=== PATIENT | male | born 1955 | race Caucasian/White ===

== ENCOUNTER → 2022-07-22 11:21 | Outpatient (BNVA) | payer MEDICARE, SELFPAY | PROVIDERS: PCP Internal Medicine; Referring Provider Internal Medicine; Visit Provider Surgery | DX: K21.9 Gastro-esophageal reflux disease without esophagitis (principal); R84.8 Other abnormal findings in specimens from respiratory organs and thorax; C85.90 Non-Hodgkin lymphoma, unspecified, unspecified site; Z87.891 Personal history of nicotine dependence | CPT/HCPCS: 99203 ==

== ENCOUNTER 2022-07-29 07:08 | Day surgery (SDC) | payer MEDICARE, SELFPAY ==
--- NOTE | 2022-07-28 19:38 | PDOC.DSDIS_ITS ---
Date of service: 07/29/22 Time of Service: 09:33 Discharge Plan Disposition Patient Disposition: HOME Condition: Good Discharge Details Reason For Visit: EGD Attending Provider: Wayne Hernandez Primary Care Provider: Pattie Rousseau Home Meds and New Rx's Prescriptions: Continued gabapentin 300 mg capsule 300 mg PO HS aspirin [Adult Aspirin Regimen] 81 mg tablet,delayed release (DR/EC) 162 mg PO DAILY atorvastatin 40 mg tablet 40 mg PO DAILY glipizide 2.5 mg tablet extended release 24hr 2.5 mg PO BID paroxetine HCl [Paxil CR] 25 mg tablet extended release 24 hr 25 mg PO DAILY Farxiga 5 mg tablet 5 mg PO DAILY omeprazole 40 mg capsule,delayed release(DR/EC) 40 mg PO HS loratadine [Allergy Relief (loratadine)] 10 mg tablet 10 mg PO DAILY montelukast [Singulair] 10 mg tablet 10 mg PO DAILY metformin 1,000 mg tablet 1,000 mg PO DAILY metformin 500 mg tablet 1,500 mg PO HS meloxicam 7.5 mg tablet 7.5 mg PO DAILY pioglitazone 30 mg tablet 30 mg PO DAILY Discharge Instructions Additional Instructions: 1. If tolerated, consume a soft, low fiber diet for 1-2 days. [address] not drive, drink alcohol, operate machinery, make critical decisions, or do activities that require coordination or balance for 24 hours. 3. You may experience a sore throat for 24 to 48 hours. You may use throat lozenges or gargle with warm salt water to relieve the discomfort. 4. Because air was put into your stomach during the procedure, you may experienc e some belching.57. Go directly to the emergency room if you notice any of the following: Develop chills (warm to touch), or if you have a thermometer and your temperature is above 101 Difficulty breathing or difficultly swallowing Persistent vomiting Severe abdominal pain, other than gas cramps Severe chest pain Black, tarry stools Any bleeding ? exceeding one tablespoon 6. Call your physician if the site where your intravenous was started becomes red, swollen, painful, and warm to touch. 7. Your physician has reviewed your pre-procedure medications. Please continue to take those medications as previously ordered. You will be given specific information/education regarding any changes to your medications before leaving. Referrals: Wayne Hernandez MD [ [facility] STAFF PHYSICIAN] - (Follow up in my office on 08/13 at 8 am) Activity:: Activity as Tolerated Diet:: As Tolerated Discharge Orders Discharge Orders: Discharge Order (Routine); Ordered 07/28/22 Ordered By: Wayne Hernandez DS: Diagnosis Discharge Diagnosis (1) Gastric mass: Status: Acute Asessment and Plan: Follow up pathology results
--- NOTE | 2022-07-28 19:40 | W.PM.DSUDISC ---
Date of service: 07/29/22 Discharge Plan Disposition Patient Disposition: HOME Condition: Good Discharge Details Reason For Visit: EGD Attending Provider: Wayne Hernandez Primary Care Provider: Pattie Rousseau Home Meds and New Rx's Prescriptions: Continued gabapentin 300 mg capsule 300 mg PO HS aspirin [Adult Aspirin Regimen] 81 mg tablet,delayed release (DR/EC) 162 mg PO DAILY atorvastatin 40 mg tablet 40 mg PO DAILY glipizide 2.5 mg tablet extended release 24hr 2.5 mg PO BID paroxetine HCl [Paxil CR] 25 mg tablet extended release 24 hr 25 mg PO DAILY Farxiga 5 mg tablet 5 mg PO DAILY omeprazole 40 mg capsule,delayed release(DR/EC) 40 mg PO HS loratadine [Allergy Relief (loratadine)] 10 mg tablet 10 mg PO DAILY montelukast [Singulair] 10 mg tablet 10 mg PO DAILY metformin 1,000 mg tablet 1,000 mg PO DAILY metformin 500 mg tablet 1,500 mg PO HS meloxicam 7.5 mg tablet 7.5 mg PO DAILY pioglitazone 30 mg tablet 30 mg PO DAILY Discharge Instructions Additional Instructions: 1. If tolerated, consume a soft, low fiber diet for 1-2 days. 2[address] Do not drive, drink alcohol, operate machinery, make critical decisions, or do activities that require coordination or balance for 24 hours. 3. You may experience a sore throat for 24 to 48 hours. You may use throat lozenges or gargle with warm salt water to relieve the discomfort. 4. Because air was put into your stomach during the procedure, you may experience some belching.57. Go directly to the emergency room if you notice any of the following: Develop chills (warm to touch), or if you have a thermometer and your temperature is above 101 Difficulty breathing or difficultly swallowing Persistent vomiting Severe abdominal pain, other than gas cramps Severe chest pain Black, tarry stools Any bleeding ? exceeding one tablespoon 6. Call your physician if the site where your intravenous was started becomes red, swollen, painful, and warm to touch. 7. Your physician has reviewed your pre-procedure medications. Please continue to take those medications as previously ordered. You will be given specific information/education regarding any changes to your medications before leaving. Activity:: Activity as Tolerated Diet:: As Tolerated
--- NOTE | 2022-07-28 19:41 | W.PM.ENDDOP ---
Date of service: 07/29/22 Time of Service: 09:38 Endoscopy Report DATE OF PROCEDURE: 07/29/22 PRE-OP DIAGNOSIS: Abnormal CAT scan POST-OP DIAGNOSIS: other (Gastric mass) PROCEDURE: EGD SURGEON: Wayne Hernandez ANESTHESIA TYPE: General:No Airway ESTIMATED BLOOD LOSS: 15 PATHOLOGY: other (gastric mass biopsies) COMPLICATIONS: None DISPOSITION: same day INDICATIONS: Noe is a 66-year-old male undergoing treatment for non-Hodgkin's lymphoma. He was undergoing surveillance PET scan, when an abnormality was noticed in the stomach. He is here for EGD for diagnostic purposes. PROCEDURE START TIME: :10 PROCEDURE END TIME: :17 FINDINGS: Mass at the GE junction PROCEDURE DESCRIPTION: After the initiation of monitored anesthetic care, and with the assistance of a bite block, I advanced a standard gastroscope through the mouth past the hypopharynx and into the esophagus.? Under the direct vision of the scope, I advanced down the esophagus into the stomach.? There was no abnormality at the GE junction. I was able to traverse this without any difficulty. Once I entered the stomach, I performed a brief inspection, followed by retroflexion towards the gastric cardia.? There was a mass at the GE junction that I would estimate 3 cm x 2 x 2.? After that, I gently advanced the scope around the incisura angularis and examined the pylorus.? This also appeared normal.? Next, I advanced the scope through the pylorus into the duodenum.? The mucosa was pink and healthy appearing.? There were no abnormalities.? I was able to visualize bile draining into the duodenum through the ampulla Vater. ?Next, I began retracting the endoscope.? The gastric antrum and body were normal-appearing. I did not see any evidence of ulcers. As mentioned above, there was a mass right at the GE junction. It is difficult to say whether or not this is truly gastric or distal esophageal. Majority of it is in the stomach on retroflexion, but as the scope was withdrawn into the esophagus, the mass does prolapse into the esophagus. With the scope and retroflexion, I was able to perform several biopsies. I estimate the true GE junction to be around 39 to 40 cm. The Z-line extended from 35 to 39 cm. Again, this was a little difficult to assess because of the prolapsing mass. Finally, I withdrew the scope along the length of the esophagus taking great care to examine the entirety of the mucosa.? I did not appreciate any abnormalities.
[2022-07-29 07:33] VITALS: BP 126/85; PULSE 71; RESP 18; TEMP 36.1; O2SAT 97
[2022-07-29] MEDS: Lactated Ringers 1,000 ML 80 ML IV (07:50)
--- NOTE | 2022-07-29 08:52 | W.ANESPRE ---
General Info Date of Service Date Performed: 07/29/22 Height: 5 ft 6 in Weight: 92.5 kg Body Mass Index (BMI): 32.9 Surgical Procedure: Operation Date: 07/29/22 08:35 Proposed Procedure Side Surgeon p Gastroscopy Wayne Hernandez MD Meds Allergies and Home Medications Allergies Allergy/AdvReac Type Severity Reaction Status Date / Time Penicillins Allergy Unknown Verified 07/29/22 07:27 Home Medication Medication Instructions Recorded atorvastatin 40 mg tablet 40 mg PO DAILY 07/17/22 dapagliflozin 5 mg tablet (Farxiga) 5 mg PO DAILY 07/17/22 glipizide 2.5 mg tablet, extended 2.5 mg PO BID 07/17/22 release 24 hr loratadine 10 mg tablet (Allergy 10 mg PO DAILY 07/17/22 Relief (loratadine)) meloxicam 7.5 mg tablet 7.5 mg PO DAILY 07/17/22 metformin 1,000 mg tablet 1,000 mg PO DAILY 07/17/22 metformin 500 mg tablet 1,500 mg PO HS 07/17/22 montelukast 10 mg tablet 10 mg PO DAILY 07/17/22 (Singulair) omeprazole 40 mg capsule,delayed 40 mg PO HS 07/17/22 release paroxetine HCl 25 mg 25 mg PO DAILY 07/17/22 tablet,extended release 24 hr (Paxil CR) pioglitazone 30 mg tablet 30 mg PO DAILY 07/17/22 aspirin 81 mg tablet,delayed 162 mg PO DAILY 07/22/22 release (Adult Aspirin Regimen) gabapentin 300 mg capsule 300 mg PO HS 07/22/22 Current Visit Medications: Current Medications Generic Name Dose Route Start Last Admin Trade Name Rodgerq PRN Reason Stop Dose Admin Hyoscyamine Sulfate 0.125 mg 07/28/22 19:42 Hyoscyamine 0.125 Mg Sl/Oral/Chew SL DIRECTED PRN Ringer's Solution 1,000 mls @ 80 mls/hr 07/29/22 06:00 07/29/22 07:50 IV 07/29/22 23:59 80 mls/hr INFUSION EMILY Administration IV Miscellaneous Supplies 1 each 07/29/22 06:00 Iv Access IV 07/29/22 23:59 DIRECTED EMILY Ondansetron HCl 4 mg 07/28/22 19:42 Ondansetron 4 Mg/2 Ml Vial IVP Q4H PRN PRN Nausea / Vomiting Sodium Chloride 0 ml 07/29/22 06:00 Normal Saline Flush 10 Ml Syr IV 07/29/22 23:59 PRN PRN Sodium Chloride 0 ml 07/29/22 06:00 Normal Saline 10 Ml Vial IJ 07/29/22 23:59 DIRECTED PRN Sterile Water 0 ml 07/29/22 06:00 Water,Injection,Sterile 10 Ml Vial IJ 07/29/22 23:59 DIRECTED PRN PFSH Active Problems Active Problems: Problem Status Onset Code NHL (non-Hodgkin's lymphoma) C85.90 GERD (gastroesophageal reflux disease) K21.9 Anxiety F41.9 Lymphadenopathy R59.1 Type 2 diabetes mellitus E11.9 Hx of smoking Z87.891 Abnormal gastrointestinal PET scan R94.8 Medical History Medical History History of closed shoulder dislocation Hyperlipidemia Onycholysis Surgical History Surgical History History of esophagogastroduodenoscopy (EGD) History of shoulder surgery Tobacco Smoking/Tobacco Use Status: Former Tobacco Use Alcohol Alcohol Intake: current Alcohol intake frequency: a few times a week Alcohol type: hard liquor Substance Use Substance use: Never Substance use type: does not use Vital Signs and Lab Results Vital Signs Most Recent Vital Signs in EMR: Most Recent Vital Signs Temp Pulse Resp BP Pulse Ox 36.1 C L 71 18 126/85 97 07/29/22 07:33 07/29/22 07:33 07/29/22 07:33 07/29/22 07:33 07/29/22 07:33 Lab Results Blood Type / Crossmatch: No Data to Display Complete Blood Count: No Data to Display Complete Metabolic Panel: No Data to Display Liver Function Panel: No Data to Display Coagulation Panel: No Data to Display Cardiac Panel: No Data to Display Arterial Blood Gas: No Data to Display Venous Blood Gas: No Data to Display Pancreas Panel: No Data to Display Thyroid Panel: No Data to Display Infectious Disease: No Data to Display Blood Cultures: No Data to Display Toxicology Panel: No Data to Display Anesthesia Assessment and Plan Anesthesia History Personal History: No History of Anesthesia Complications Family History: No Family History of Anesthesia Complications Exercise Tolerance Exercise Tolerance: Metabolic Equivalents>4 Pertinent Negatives Pertinent Negatives: No Symptoms of GERD Cardiac & Pulmonary Exam Cardiac Exam: Normal S1/S2 Heart Sounds Pulmonary Exam: Clear Bilateral Breath Sounds Implantable Cardiac Device Does patient have a Pacemaker or an ICD?: No Airway Exam Known Difficult Airway: No Mallampati Class: 3 Mouth Opening: Normal (> 3cm) Thyromental Distance: Greater than 3 cm Neck Range of Motion: Full ROM Neck Circumference: Thick Teeth Condition: Normal Dentition ASA Classification ASA Score: ASA 2 Emergency Case?: No NPO Status NPO Status: NPO Clears >2 hours, Solids >8 hours Anesthesia Plan Resuscitation Status: Full Code Anesthesia Technique: General Anesthesia Airway Planned: Natural Airway Monitors Used: Standard Monitors
[2022-07-29 08:57] VITALS: BMI 32.9
--- NOTE | 2022-07-29 09:13 | STOM_PTH ---
PATIENT: Noe Ac LOC: [facility] U#:[id number] AGE/SX: 66/M ROOM: RE07/29/[address]: Wayne Hernandez MD : 1955 BED: DIS: 07/29/2022 SPEC #: [id number] RECD: 07/29/22 12:20 STATUS: ROSELIA RE #: [id number] LYLE: 07/29/22 09:[address]: Wayne Hernandez DEPT: Surgical Specimen RECD BY: Mariel Torre ENTERED: 07/29/22 12:22 SP TYPE: STOMACH OTHR DR: Pattie Rousseau Tissues: 1 - ESOPHAGUS BIOPSY Procedures: GROSS AND MICRO LEVEL 4 Comments: [id number]
[2022-07-29 09:25] VITALS: BP 118/90; PULSE 81; RESP 16; TEMP 36.2; O2SAT 95
--- NOTE | 2022-07-29 09:38 | W.ANESPOSTOP ---
Postoperative Evaluation Date, Time and Location Date Performed: 07/29/22 Time Performed: 09:38 Patient Location: Day Surgery Unit Vital Signs Most Recent Imported Vital Signs: Most Recent Vital Signs Temp Pulse Resp BP Pulse Ox 36.2 C L 81 16 118/90 95 07/29/22 09:25 07/29/22 09:25 07/29/22 09:25 07/29/22 09:25 07/29/22 09:25 Pain Score Most Recent Pain Score: Most Recent Pain Score Pain Level 0 07/29/22 09:25 Assessment Mental Status: Awake (Alert & Oriented to Patient Baseline) Airway and Respiratory Function: Patent airway with normal (patient baseline) respiratory exam Cardiovascular Function: Hemodynamically Stable Hydration Status: Adequately Hydrated Nausea & Vomiting: No Nausea or Vomiting Pain: Pt. Denies Any Pain Peripheral Nerve Block: Patient did not receive a nerve block
[2022-07-29 09:50] VITALS: BP 119/89; PULSE 74; RESP 16; TEMP 36.4; O2SAT 97
== END 2022-07-29 10:15 | disposition home or self-care (01) ==
PROVIDERS: PCP Internal Medicine; Visit Provider Surgery
PROC: 0DJ68ZZ Inspection of Stomach, Via Natural or Artificial Opening Endoscopic (ICD-10-PCS; CPT 43235; principal; 2022-07-29 08:30)
DX: C16.9 Malignant neoplasm of stomach, unspecified (principal); K21.9 Gastro-esophageal reflux disease without esophagitis; E11.9 Type 2 diabetes mellitus without complications; C85.90 Non-Hodgkin lymphoma, unspecified, unspecified site; Z79.84 Long term (current) use of oral hypoglycemic drugs
CPT/HCPCS: 43239; 88305